=== PATIENT | female | born 1960 | race African-American/Black ===

== ENCOUNTER → 2021-04-13 | Outpatient (CLI) | payer BC ==
--- NOTE | 2021-04-13 17:45 | CARD ---
MR#: [id number] Date of Study: 04/13/2021 Ordering Physician: ABDOULAYE GONZALEZ, Referring Physician: ABDOULAYE GONZALEZ, Tech: Susan Beaver, [facility] APPROVED REPORT EXAM: Two-dimensional and M-mode echocardiogram with Doppler and color Doppler. Other Information Quality : AverageHR: 51bpm INDICATION Murmur RISK FACTORS Hypertension Hyperlipidemia 2D DIMENSIONS RVDd3.2 (2.9-3.5cm)Left Atrium(2D)3.2 (1.6-4.0cm) IVSd1.3 (0.7-1.1cm)Aortic Root(2D)2.8 (2.0-3.7cm) LVDd5.1 (3.9-5.9cm)LVOT Diameter2.0 (1.8-2.4cm) PWd1.1 (0.7-1.1cm)LVDs3.2 (2.5-4.0cm) FS (%) 37.3 %SV81.5 ml LVEF(%)67.0 (>50%) Aortic Valve AoV Peak Dusty.214.8cm/sAoV VTI47.1cm AO Peak GR.18.5mmHgLVOT Peak Dusty.95.6cm/s LVOT VTI 26.72cmAO Mean GR.10mmHg BRIAN (VMAX)1.64xa6BAS (VTI)1.70cm2 AI P 1/2 Pjng342tc Mitral Valve MV E Xjqgwrih39.8cm/sMV DECEL [id number] MV A Lmpwwgkf41.7cm/sMV GCZ64uz E/A Ratio0.9MVA (PHT)2.71cm2 TDI E/Lateral E'6.5E/Medial E'9.9 Pulmonary Valve PV Peak Eypoicjk879.8cm/sPV Peak Grad.5mmHg Tricuspid Valve TR P. Puvcxkgc139zn/sRAP SVYNGXTI4jnKw TR Peak Gr.68zxBbDTYM41kjEz Pulmonary Vein S1 Qxzftrar38.9cm/sD2 Vlozfjnt62.9cm/s PVa daifpihi139jrjs LEFT VENTRICLE The left ventricle is normal size. There is mild to moderate concentric left ventricular hypertrophy. The left ventricular systolic function is normal. The Ejection Fraction is 55-60%. There is normal L V segmental wall motion. Transmitral Doppler flow pattern is Grade II-pseudonormal filling dynamics. RIGHT VENTRICLE The right ventricle is normal size. There is normal right ventricular wall thickness. The right ventr icular systolic function is normal. ATRIA The left atrium size is normal. The right atrium size is normal. The interatrial septum is intact wit h no evidence for an atrial septal defect or patent foramen ovale as noted on 2-D or Doppler imaging. AORTIC VALVE The aortic valve is mildly to moderately thickened. Doppler and Color Flow revealed mild aortic regur gitation. There is no significant aortic valvular stenosis. Calculated aortic valve area is 1.67 cm2 with maximum pressure gradient of 20 mmHg and mean pressure gradient of 11 mmHg. MITRAL VALVE The mitral valve is normal in structure and function. There is no evidence of mitral valve prolapse. There is no mitral valve stenosis. Doppler and Color-flow revealed trace mitral regurgitation. TRICUSPID VALVE The tricuspid valve is normal in structure and function. Doppler and Color Flow revealed trace tricus pid valve regurgitation with an estimated PAP of 34 mmHg. There is no tricuspid valve stenosis. PULMONIC VALVE The pulmonic valve is not well visualized. Doppler and Color Flow revealed trace pulmonic valvular re gurgitation. GREAT VESSELS The aortic root is normal in size. The ascending aorta is Mildly dilated measuring 4.12 cm. The IVC i s normal in size and collapses >50% with inspiration. PERICARDIAL EFFUSION There is no evidence of significant pericardial effusion. Critical Notification Critical Value: No <Conclusion> The left ventricular systolic function is normal. The Ejection Fraction is 55-60%. There is normal LV segmental wall motion. Transmitral Doppler flow pattern is Grade II-pseudonormal filling dynamics. Mild aortic regurgitation. Trace mitral regurgitation. Trace tricuspid valve regurgitation with an estimated PAP of 34 mmHg. There is no evidence of significant pericardial effusion. Signed by : Yonny Antunez, Electronically Approved : 04/13/2021 17:45:31
== END ==
LOC: ECHO 13:42
PROVIDERS: ATTEND Family Medicine
DX: I35.1 Nonrheumatic aortic (valve) insufficiency (principal)
CPT/HCPCS: 93306